=== PATIENT | female | born 1990 | race Caucasian/White ===

== ENCOUNTER 2021-11-26 18:02 | Emergency (ER) | payer BC ==
[~2021-11-26] VITALS: Ht 175.3 cm; Wt 68.0 kg
--- NOTE | 2021-11-26 18:13 | NUR ---
TO ER BED 3, C/O CHEST PAIN AND SOB X 1 WEEK,WORSE X 1 HR, AAOX3, BREATHING EVEN AND NON LABORED, CONNECTED TO MONITOR, AWAITING MD SAUCEDA
--- NOTE | 2021-11-26 18:20 | NUR ---
DR GONZALEZ AT BEDSIDE FOR EVAL
--- NOTE | 2021-11-26 18:25 | NUR ---
TECH AT BEDSIDE FOR EKG
--- NOTE | 2021-11-26 18:29 | NUR ---
URINE SAMPLE COLLECTED AND SENT TO LAB
[2021-11-26] MEDS ORDERED: KETOROLAC TROMETHAMINE INJ 30 MG/ML VIAL IM ONE (18:30)
--- NOTE | 2021-11-26 18:30 | NUR ---
FURNACE DOOR TENDER AT BEDSIDE FOR XRAY
--- NOTE | 2021-11-26 18:34 | NUR ---
ELECTRONIC SCANNER OPERATOR AT BEDSIDE FOR BLOOD DRAW
[2021-11-26 19:05] LABS: CALCIUM, SERUM 8.9 mg/dL (8.5-10.1); CARBON DIOXIDE 28 mmol/L (21-32); CHLORIDE 105 mmol/L (98-107); CREATININE 0.8 mg/dL (0.6-1.3); GLUCOSE 96 mg/dL (74-106); POTASSIUM 4.1 mmol/L (3.5-5.1); SODIUM SERUM 140 mmol/L (136-145)
[2021-11-26 19:13] LABS: UREA NITROGEN, BLOOD 9 mg/dL (7-18)
[2021-11-26] MEDS ORDERED: KETOROLAC TROMETHAMINE INJ 30 MG/ML VIAL ONE (19:16)
[2021-11-26] MEDS ORDERED: LORAZEPAM INJ 2 MG/ML VIAL ONE (19:25)
[2021-11-26] MEDS ORDERED: IV NS 0.9% 250 ML IV ONE (19:26)
[2021-11-26] MEDS ORDERED: CT SWABBABLE VALVE TRANS SET 1 EA INFUS.SET MC ONE (19:26)
[2021-11-26] MEDS ORDERED: IOHEXOL-350 100 ML VIAL IV ONE (19:26)
--- NOTE | 2021-11-26 19:29 | NUR ---
20G IV LINE ESTABLISHED RAC FOR CTA.
[2021-11-26] MEDS ORDERED: LORAZEPAM INJ 2 MG/ML VIAL IV ONE (19:30)
--- NOTE | 2021-11-26 19:31 | NUR ---
PT BEING TRANSPORTED TO [facility]
[2021-11-26 20:08] LABS: BASOPHILS % (AUTO) 0.5 % (0.0-2.0); EOSINOPHILS % (AUTO) 4.3 % (0.0-6.0); HEMATOCRIT 37 % (33-45); HEMOGLOBIN 12.5 g/dL (11.5-14.8); LYMPHOCYTES % (AUTO) 26.1 % (20.0-44.0); MEAN CORPUSCULAR HGB CONC 34 g/dl (31.0-36.0); MEAN CORPUSCULAR VOLUME 85 fL (82-100); MONOCYTES # (AUTO) 0.4 K/uL (0.1-1.30); MONOCYTES % (AUTO) 4.8 % (2.0-12.0); NEUTROPHILS # (AUTO) 4.9 K/uL (1.8-8.9); NEUTROPHILS % (AUTO) 64.3 % (43.0-81.0); PLATELET COUNT (AUTO) 292 K/uL (150-450); RED BLOOD CELL COUNT(AUTO) 4.35 MIL/uL (4.0-5.2); WHITE BLOOD COUNT (AUTO) 7.6 K/uL (4.3-11.0)
--- NOTE | 2021-11-26 21:24 | NUR ---
Patient discharged to home in stable condition. Written and verbal after care instructions given. Patient verbalizes understanding of instruction.IV removed. Catheter intact and site benign. Pressure and 4x4 applied to site. No bleeding noted.
[2021-11-26 21:26] VITALS: BP 125/75
== END 2021-11-26 21:26 | disposition home or self-care (01) ==
LOC: ER 18:09
DX: R07.89 Other chest pain (principal); J45.909 Unspecified asthma, uncomplicated; Z60.2 Problems related to living alone
CPT/HCPCS: 99285; 96374; 71275; 71045; 93005 ×2; 85025; 80048; 85378; 84703; 36415; 84484 ×2; 83880; 96372; J2060; J1885; J7050; Q9967

== ENCOUNTER 2021-12-01 19:02 | Emergency (ER) | payer BC ==
[~2021-12-01] VITALS: Ht 175.3 cm; Wt 72.6 kg
--- NOTE | 2021-12-01 19:35 | NUR ---
BIBFAMILY C/O CHEST PAIN P/S 01/06 X1WK, WAS HERE LAST WEEKEND FOR THE SAME REASON. PLACED COMFORTABLY IN BED. ATTACHED TO MONITOR. VITALS CHECKED.
--- NOTE | 2021-12-01 19:41 | NUR ---
EKG DONE AT BEDSIDE.
[2021-12-01] MEDS ORDERED: DIAZEPAM 5 MG TABLET ONE (19:50)
[2021-12-01] MEDS ORDERED: KETOROLAC TROMETHAMINE INJ 30 MG/ML VIAL ONE (19:50)
[2021-12-01] MEDS ORDERED: DIAZEPAM 5 MG TABLET PO ONE (20:00)
[2021-12-01] MEDS ORDERED: KETOROLAC TROMETHAMINE INJ 30 MG/ML VIAL IV ONE (20:00)
--- NOTE | 2021-12-01 20:00 | NUR ---
IV CANNULA G20 INSERTED ON LEFT AC. BLOOD DRAWN AND SENT TO LAB
[2021-12-01 20:13] LABS: BASOPHILS # (AUTO) 0.1 K/uL (0.0-0.2); BASOPHILS % (AUTO) 0.8 % (0.0-2.0); EOSINOPHILS % (AUTO) 3.2 % (0.0-6.0); HEMATOCRIT 36 % (33-45); HEMOGLOBIN 12.2 g/dL (11.5-14.8); LYMPHOCYTES # (AUTO) 2.2 K/uL (0.8-4.8); LYMPHOCYTES % (AUTO) 31.4 % (20.0-44.0); MEAN CORPUSCULAR HGB CONC 34 g/dl (31.0-36.0); MEAN CORPUSCULAR VOLUME 85 fL (82-100); MONOCYTES # (AUTO) 0.4 K/uL (0.1-1.30); MONOCYTES % (AUTO) 5.8 % (2.0-12.0); NEUTROPHILS # (AUTO) 4.2 K/uL (1.8-8.9); NEUTROPHILS % (AUTO) 58.8 % (43.0-81.0); PLATELET COUNT (AUTO) 282 K/uL (150-450); RED BLOOD CELL COUNT(AUTO) 4.26 MIL/uL (4.0-5.2); WHITE BLOOD COUNT (AUTO) 7.2 K/uL (4.3-11.0)
--- NOTE | 2021-12-01 20:20 | NUR ---
THREE KNIFE TRIMMER AT BEDSIDE
[2021-12-01 20:29] LABS: CALCIUM, SERUM 8.9 mg/dL (8.5-10.1); CARBON DIOXIDE 25 mmol/L (21-32); CHLORIDE 107 mmol/L (98-107); CREATININE 0.7 mg/dL (0.6-1.3); GLUCOSE 90 mg/dL (74-106); POTASSIUM 3.7 mmol/L (3.5-5.1); SODIUM SERUM 141 mmol/L (136-145); UREA NITROGEN, BLOOD 7 mg/dL (7-18)
--- NOTE | 2021-12-01 20:35 | NUR ---
ADITYA SERVED WITH APPROVAL FROM DR COLIN
[2021-12-01 23:09] VITALS: BP 127/66
== END 2021-12-01 23:10 | disposition home or self-care (01) ==
LOC: ER 19:03
DX: R07.89 Other chest pain (principal); J45.909 Unspecified asthma, uncomplicated; F41.9 Anxiety disorder, unspecified
CPT/HCPCS: 99285; 96374; 71045; 93005 ×3; 85025; 80048; 36415; 84484 ×2; J1885

== ENCOUNTER 2021-12-03 21:42 | Emergency (ER) | payer BC ==
[~2021-12-03] VITALS: Ht 175.3 cm; Wt 72.6 kg
[2021-12-03 21:49] VITALS: BP 134/63
== END 2021-12-03 22:12 | disposition home or self-care (01) ==
LOC: ER 21:43
DX: R07.89 Other chest pain (principal); J45.909 Unspecified asthma, uncomplicated; F41.9 Anxiety disorder, unspecified